=== PATIENT | male | born 1940 | race Caucasian/White ===

== ENCOUNTER 2017-05-16 20:25 | Inpatient (IN) | payer OTHER ==
[~2017-05-16] VITALS: Ht 180.3 cm; Wt 122.0 kg
[2017-05-16 20:32] VITALS: BP 136/100
[2017-05-16] MEDS ORDERED: SPIRONOLACTONE25 M1 PO (20:39)
[2017-05-16] MEDS ORDERED: NEURONTIN600 MG PO (20:39)
[2017-05-16] MEDS ORDERED: LIPITOR 20 MG T20 M1 PO (20:39)
[2017-05-16] MEDS ORDERED: NEURONTIN 300300 M1 PO (20:39)
[2017-05-16] MEDS ORDERED: PROTONIX40 M1 PO (20:39)
[2017-05-16] MEDS ORDERED: ELIQUIS5 MG PO (20:40)
[2017-05-16] MEDS ORDERED: LASIX 20 MG TAB20 MG PO (20:40)
[2017-05-16] MEDS ORDERED: SYNTHROID88 MCG PO (20:40)
[2017-05-16] MEDS ORDERED: LOPRESSOR100 M1 PO (20:41)
[2017-05-16] MEDS ORDERED: METROGEL60 GM TOP (20:41)
[2017-05-16] MEDS ORDERED: PROSCAR 5MG TABL5 MG PO (20:41)
[2017-05-16] MEDS ORDERED: TRAZODONE HCL100 MG PO (20:42)
[2017-05-16] MEDS ORDERED: FLOMAX0.4 MG PO (20:42)
[2017-05-16 20:46] LABS: ABSOLUTE BASOPHILS 0.1 thou/uL (0.0-0.2); ABSOLUTE EOSINOPHILS 0.2 thou/uL (0.0-0.7); ABSOLUTE LYMPHOCYTES 2.4 thou/uL (0.8-5.3); ABSOLUTE MONOCYTES 1.1 thou/uL (0.0-1.2); ABSOLUTE NEUTROPHILS 4.6 thou/uL (1.6-8.1); BASOPHILS 1.1 %; EOSINOPHILS 2.9 %; HEMATOCRIT 40.2 % (42.0-52.0); HEMOGLOBIN 13.7 gm/dL (14.0-18.0); LYMPHOCYTES 27.9 %; MCH 31.7 pg (26.0-34.0); MCHC 34.1 g/dL (28.0-37.0); MONOCYTES 13.4 %; MPV 9.9 fl. (7.2-11.1); NUCLEATED RBCS 0 /100WBC; PLATELET COUNT* 118 thou/uL (150-400); POLYS 54.7 %; RBC 4.32 mil/uL (4.50-6.00); RDW-CV 13.7 % (10.5-14.5); WBC 8.4 thou/uL (4.0-11.0)
--- NOTE | 2017-05-16 20:48 | NUR ---
DR GALLARDO IS AT BEDSIDE TALKING WITH PATIENT. PATIENT IS AWAKE, ALERT ORIENTED X 2 SKIN IS WARM AND DRY. PATIENT STATES HE HAS NOT HAD ANY CHEST PAIN AND DOES NOT HAVE ANY CHEST PAIN NOW. PATIENT DENIES ANY RESPIRATORY DISTRESS. PATIENT SITTING WITH HOB ELEVATED. NOTED EPISODES OF TACHYCARDIA ON MONITOR. DR GALLARDO STATES HE IS NOT GOING TO [facility] ANY TREATMENT FOR PATIENT UNLESS PATIENT BECOMES SYMPTOMATIC
[2017-05-16 20:58] LABS: ANION GAP 8 mmol/L (7-16); BUN 21 mg/dL (7-18); CALCIUM 8.6 mg/dL (8.5-10.1); CHLORIDE 105 mmol/L (98-107); CO2 29 mmol/L (21-32); CREATININE 0.9 mg/dL (0.6-1.3); GLUCOSE 124 mg/dL (70-99); POTASSIUM 4.2 mmol/L (3.5-5.1); SODIUM 142 mmol/L (136-145)
[2017-05-16 21:13] LABS: ALBUMIN 3.8 g/dL (3.4-5.0); ALKALINE PHOSPHATASE 67 U/L (46-116); CK-MB MASS 1.1 ng/mL (<0.5-3.6); LIPASE 119 U/L (73-393); MAGNESIUM 1.5 mg/dL (1.8-2.4); NT-PRO BRAIN NAT PEPTIDE 278 pg/mL (<300); SGOT 31 U/L (15-37); SGPT 36 U/L (30-65); TOTAL BILIRUBIN 0.5 mg/dL (<0.1-1.0); TOTAL PROTEIN 7.2 g/dL (6.4-8.2); TROPONIN-I LEVEL <0.06 ng/mL (<0.06)
[2017-05-16 21:19] LABS: APTT 27.9 Seconds (25.0-31.3); INR 1.1; PROTIME 11.1 Seconds (9.20-11.50)
[2017-05-16 21:51] VITALS: BP 101/66
[2017-05-16 22:10] VITALS: BP 120/85
[2017-05-16] MEDS ORDERED: ACETAMINOPHEN1 EACH PO (22:25)
[2017-05-17 04:00] VITALS: BP 115/78
--- NOTE | 2017-05-17 08:27 | NUR ---
PATIENT TO UNIT AT 2210, ADMISSION COMPLETED CHARTED. PATIENT ALERT/ORIENTED X4, RESTING IN BED. PLACED ON TELE, AFIB/PACED/WIDE COMPLEX TACHYCARDIA INTERMITTENTLY. DR. EDWARDS NOTIFIED OF RHYTHM, PRN ORDERS RECEIVED. WEARING OXYGEN 2L/NC, NO SOB NOTED, SATS 99%. WEARING HOME BIPAP AT HS. SL INTACT TO RIGHT AC, FLUSHES WELL. DENIES PAIN, CHEST PAIN OR NEEDS. DR. MCCLAIN NOTIFIED FOR HS MEDS, ORDERS RECEIVED. UP WITH SBA TO BATHROOM, STATES RECENTLY FALLING AT HOME. BED ALARM ON. FALL PRECAUTIONS IN PLACE. REFUSING SCD'S. NPO AFTER MIDNIGHT. CALL LIGHT WITHIN REACH, REPORT GIVEN TO ONCOMING NURSE.
[2017-05-17 08:35] VITALS: BP 99/66
--- NOTE | 2017-05-17 11:28 | EKG ---
[place] [address] ELECTROCARDIOGRAM REPORT Name: JACOBO VASQUEZ Room: [address] ADM IN .R.#: [id number] Admission: 05/16/17 Attend Phys: Cory Khan MD Discharge: Date of : 36 Report #: [id number] THIS REPORT FOR: //name// 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 : 1940 Requested By: Delon Waldrop Order Number: [id number] MD: Sammy Camarog Measurements Intervals [place] Rate: 81 P: LA: 164 QRS: -34 QRSD: 105 T: 63 QT: 380 QTc: 441 Interpretive Statements A-V dual-paced rhythm with some inhibition No further analysis attempted due to paced rhythm No previous ECG available for comparison Electronically Signed On 05-17-2017 11:27:53 POLE FRAMER by Sammy Camargo [email or web address] <ELECTRONICALLY SIGNED> By: Sammy Camargo MD, [facility] 05/17/17 1127 30 30 Sammy Camargo MD, [facility] /EPI
[2017-05-17 12:16] VITALS: BP 104/69
--- NOTE | 2017-05-17 14:21 | CON ---
[address] [address] CONSULTATION Name: JACOBO VASQUEZ Room: [address] IN .R.#: [id number] Admission: 05/16/17 Attend Phys: Cory Khan MD Discharge: Date of : 36 Report #: [id number] THIS REPORT FOR: //name// CC: [facility] PRIMARY AGRONOMY RESEARCH MANAGER: Dr. Palmer at [facility]. REASON FOR CONSULTATION: Abnormal cardiac rhythm. HISTORY OF PRESENT ILLNESS: The patient is a 76-year-old man who presented to the hospital with electrolyte dyscrasias and irregular heartbeat sensations. He has a known history of atrial fibrillation, has a permanent pacemaker implanted, [employer] device. Overnight on telemetry he is still having runs of atrial fibrillation, heart rates in the 120s, but also occasionally a wide complex tachycardia with slightly faster heart rates, which is occasionally paced. With these symptoms, he feels some mild fluttering sensations, but denies presyncope. He denies chest pain or pressure. Cardiac troponin levels are unremarkable. He has been compliant with his medications including anticoagulation. He has no neuro symptoms of slurred speech, numbness or visual changes. He has no underlying history of atherosclerotic heart disease or congestive heart failure. PAST MEDICAL HISTORY: 1. Significant for atrial arrhythmias, atrial fibrillation status post 05/10/2017 [employer] pacemaker implanted. He had a 2015 negative stress test, essential hypertension, sick sinus syndrome, MAKSIM, impaired fasting glucose. He has had a complicated spinal infection requiring a left-sided thoracotomy with apparent rib resection and residual chest wall defect. 2. Morbid obesity. PAST SURGICAL HISTORY: As above. Thoracic surgery, prior prostate surgery. HOME MEDICATIONS: Include Eliquis 5 mg p.o. b.i.d., Proscar, Nexium 40 mg daily, Lasix 20 mg every other day, Synthroid 50 mcg daily, metoprolol tartrate 150 mg p.o. b.i.d., Aldactone 25 mg daily, tamsulosin and atorvastatin 20 mg daily, Aldactone 25 mg daily. ALLERGIES: He has allergies to DOXYCYCLINE, FLUTICASONE, LEVAQUIN, LISINOPRIL and PENICILLIN. FAMILY HISTORY: Positive [place] [address] CONSULTATION Name: JACOBO VASQUEZ Room: [address]#: [id number] Admission: 05/16/17 Attend Phys: Cory Khan MD Discharge: Date of : 36 Report #: [id number] SOCIAL HISTORY: He is a nonsmoker. REVIEW OF SYSTEMS: GASTROINTESTINAL: No fevers or chills. CARDIOVASCULAR: Positive dizziness. Positive palpitations. No chest pain, orthopnea, no PND, no edema. SKIN: No rashes. GENERAL: No fevers or chills. PULMONARY: No wheezing or cough. ABDOMEN: Soft, nontender. EXTREMITIES: There is no peripheral edema. SKIN: No rashes. ALLERGIES: As above medical allergies. He also has a PENICILLIN allergy. No contrast allergy. PSYCHIATRIC: No depression or anxiety. HEMATOLOGIC: No anemia or bleeding disorder. GENITOURINARY: No dysuria or hematuria. EARS, NOSE, THROAT AND MOUTH: Positive decreased hearing. No bleeding from nose or dentures. PHYSICAL EXAMINATION: VITAL SIGNS: Blood pressure 115/78, pulse 71. Underlying rhythm is AV paced. GENERAL: A pleasant, morbidly obese, elderly male who is alert, oriented, no apparent distress. NECK: Supple. No jugular venous distention. CARDIOVASCULAR: Regular. I cannot hear a murmur. LUNGS: Clear to auscultation. CHEST WALL: He has the aforementioned defect on his left chest wall with protuberance which is nontender and nonerythematous. EXTREMITIES: There is no peripheral edema. LABORATORY DATA: Electrocardiogram demonstrates intermittent atrial fibrillation with also telemetry data with him in a sinus rhythm and then a wide complex tachycardia, which on telemetry is sometimes paced. It is regular at a rate of 150-160 beats per minute. Hemoglobin is 13.7, white blood cell count is 8.4, platelet count is 118,000. Sodium is 142, potassium 4.2, chloride is 105, CO2 is 29, BUN 21, creatinine 0.9, AST is 31, ALT is 36. Troponin I is 0.06. BNP is 278. IMPRESSION: 1. Paroxysmal atrial fibrillation. I think he may be tracking some from his permanent pacemaker. 2. Sick sinus syndrome. 3. Status post permanent pacemaker implantation. We will notify the device rep [address] [address] CONSULTATION Name: JACOBO VASQUEZ Room: [address] IN M.R.#: [id number] Admission: 05/16/17 Attend Phys: Cory Khan MD Discharge: Date of : 36 Report #: [id number] and have his device interrogated. 4. Oral anticoagulation adequate. He will continue with Eliquis. <ELECTRONICALLY SIGNED> By: Sammy Camargo MD, FACC 05/17/17 1421 0940 [id number] Camargo MD, FACC /nt
--- NOTE | 2017-05-17 14:32 | NUR ---
CM ASSESSMENT: Pt is A&O. Resides at home with his . Independent with ADLs, continues to assist around the house and drive. Pt uses a cane when out in the community. Pt wears a bipap at night, serviced through [facility]. Hx of , when he lived down by the [facility]. Hx of skilled at a facility in [place], [place]. Pt's goal is to return home once medically stable for dc. Following for dc needs.
--- NOTE | 2017-05-17 16:30 | NUR ---
PT AMBULATING WITH STEADY GAIT TO BR. ASSESSMENT COMPLETE. SR ON MONITOR. NO C/O SOA OR CP. PT STATES HE HAD DIARRHEA X 4 YESTERDAY, NONE TODAY. DISCHARGE ORDER COMPLETE. REVIEWED DC INSTRUCTIONS AND MED LIST WITH PT. ANSWERED QUESTIONS TO PT SATISFACTION. NEEDED ITEMS AND CALL LIGHT IN REACH.
[2017-05-17 17:42] VITALS: BP 104/69
[2017-05-17 17:55] VITALS: BP 104/69
== END 2017-05-17 18:30 | disposition home or self-care (01) | DRG 309 ==
LOC: M.ERS 20:25 → M.2W 20:51 → M.TBA-ER 20:51 → M.2W 21:25
PROVIDERS: Family Medicine; ADMIT Internal Medicine
DX: I48.0 Paroxysmal atrial fibrillation (principal); D68.69 Other thrombophilia; I50.32 Chronic diastolic (congestive) heart failure; E03.9 Hypothyroidism, unspecified; I10 Essential (primary) hypertension; E78.00 Pure hypercholesterolemia, unspecified; R20.0 Anesthesia of skin; E83.42 Hypomagnesemia; E66.01 Morbid (severe) obesity due to excess calories; I49.5 Sick sinus syndrome; Z68.37 Body mass index [BMI] 37.0-37.9, adult; Z88.1 Allergy status to other antibiotic agents; Z82.3 Family history of stroke; Z82.49 Family history of ischemic heart disease and other diseases of the circulatory system; Z88.0 Allergy status to penicillin; Z79.899 Other long term (current) drug therapy; Z95.0 Presence of cardiac pacemaker

== ENCOUNTER 2019-09-23 19:23 | Emergency (ER) | payer MEDICARE ==
[~2019-09-23] VITALS: Ht 180.3 cm; Wt 127.0 kg
[~2019-09-23 19:23] MED LIST: ACETAMINOPHEN1 EACH PO; ELIQUIS5 MG PO; FLOMAX0.4 MG PO; LASIX 20 MG TAB20 MG PO; LIPITOR 20 MG T20 M1 PO; LOPRESSOR100 M1 PO; METROGEL60 GM TOP; NEURONTIN 300300 M1 PO; NEURONTIN600 MG PO; PROSCAR 5MG TABL5 MG PO; PROTONIX40 M1 PO; SPIRONOLACTONE25 M1 PO; SYNTHROID88 MCG PO; TRAZODONE HCL100 MG PO
[2019-09-23] MEDS ORDERED: COZAAR 25 MG TA25 M2 PO (19:49)
[2019-09-23 19:58] LABS: ABSOLUTE BASOPHILS 0.1 thou/uL (0.0-0.2); ABSOLUTE EOSINOPHILS 0.2 thou/uL (0.0-0.7); ABSOLUTE LYMPHOCYTES 2.3 thou/uL (0.8-5.3); ABSOLUTE MONOCYTES 1.1 thou/uL (0.0-1.2); EOSINOPHILS 1.7 %; HEMATOCRIT 40.9 % (42.0-52.0); LYMPHOCYTES 21.1 %; MCH 32.1 pg (26.0-34.0); MCHC 34.2 g/dL (28.0-37.0); MCV 93.8 fL (80.0-100.0); MONOCYTES 10.2 %; MPV 9.7 fl. (7.2-11.1); NUCLEATED RBCS 0 /100WBC; PLATELET COUNT* 168 thou/uL (150-400); RBC 4.36 mil/uL (4.50-6.00); RDW-CV 13.4 % (10.5-14.5); WBC 10.7 thou/uL (4.0-11.0)
[2019-09-23 20:06] LABS: CALCIUM 8.7 mg/dL (8.5-10.1); CREATININE 1.2 mg/dL (0.6-1.3); POTASSIUM 3.7 mmol/L (3.5-5.1)
[2019-09-23 20:08] LABS: PROTIME 10.7 Seconds (9.20-11.50)
[2019-09-23 20:11] LABS: URINE BILIRUBIN NEGATIVE (Negative); URINE BLOOD 1+ (Negative); URINE CLARITY CLEAR; URINE COLOR YELLOW; URINE GLUCOSE-RANDOM NEGATIVE (Negative); URINE KETONES NEGATIVE (Negative); URINE LEUKOCYTES-REFLEX NEGATIVE (Negative); URINE NITRITE-REFLEX NEGATIVE (Negative); URINE PROTEIN NEGATIVE (Negative); URINE SPECIFIC GRAVITY <= 1.005 (1.005-1.030); URINE UROBILINOGEN 0.2 E.U./dl (0.2-1.0)
[2019-09-23 20:16] LABS: MAGNESIUM 1.2 mg/dL (1.8-2.4); TOTAL BILIRUBIN 0.4 mg/dL (<0.1-1.0); TOTAL PROTEIN 7.4 g/dL (6.4-8.2)
[2019-09-23 20:30] LABS: SQUAMOUS 0-3 Few /LPF (0-3); URINE WBC-REFLEX 0-5 Rare /HPF (0-5)
[2019-09-23 20:31] LABS: BACTERIA-REFLEX 1-9 Few /HPF (None Seen); CASTS None Seen /LPF (None Seen); CRYSTALS None Seen /LPF (None Seen); URINE RBC 0-2 Rare /HPF (0-2)
[2019-09-23 23:09] VITALS: BP 144/100
--- NOTE | 2019-09-24 09:10 | EKG ---
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 <ELECTRONICALLY SIGNED> By: Panchito Locke MD, [facility] 09/24/19908 40 40 Panchito Locke MD, [facility] /EPI
== END 2019-09-23 23:10 | disposition home or self-care (01) ==
LOC: M.ERS 19:23
PROVIDERS: Emergency Medicine
DX: E83.42 Hypomagnesemia (principal); I10 Essential (primary) hypertension; I48.91 Unspecified atrial fibrillation; E03.9 Hypothyroidism, unspecified; E78.00 Pure hypercholesterolemia, unspecified; Z88.0 Allergy status to penicillin

== ENCOUNTER 2020-09-13 08:27 | Observation (INO) | payer MEDICARE ==
[~2020-09-13] VITALS: Ht 180.3 cm; Wt 129.3 kg
--- NOTE | ~2020-09-13 | EKG ---
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
[~2020-09-13 08:27] MED LIST changes: +COZAAR 25 MG TA25 M2 PO; -PROTONIX40 M1 PO; +PROTONIX40 M2 PO
[2020-09-13 08:32] VITALS: BP 141/90
[2020-09-13] MEDS ORDERED: C-10001000 MG PO (08:34)
[2020-09-13] MEDS ORDERED: FLONASE 0.05%50 MCG NARES (08:35)
[2020-09-13] MEDS ORDERED: CEPHALEXIN500 MG PO (08:35)
[2020-09-13] MEDS ORDERED: LEVO-T75 MCG PO (08:36)
[2020-09-13] MEDS ORDERED: NYSTATIN15 G1 TOP (08:37)
[2020-09-13] MEDS ORDERED: TOPROL XL100 MG PO (08:37)
[2020-09-13] MEDS ORDERED: COZAAR 25 MG TA25 M1 PO (08:37)
[2020-09-13] MEDS ORDERED: PREDNISONE 10 M10 MG PO (08:38)
[2020-09-13] MEDS ORDERED: MIRAPEX0.25 MG PO (08:38)
[2020-09-13] MEDS ORDERED: VESICARE 5 MG TA5 M1 PO (08:39)
[2020-09-13] MEDS ORDERED: PREDNISONE 10 M10 MG (08:39)
[2020-09-13 08:55] LABS: ABSOLUTE BASOPHILS 0.1 thou/uL (0.0-0.2); ABSOLUTE EOSINOPHILS 0.2 thou/uL (0.0-0.7); ABSOLUTE LYMPHOCYTES 1.7 thou/uL (0.8-5.3); ABSOLUTE MONOCYTES 0.9 thou/uL (0.0-1.2); ABSOLUTE NEUTROPHILS 4.3 thou/uL (1.6-8.1); BASOPHILS 0.9 %; EOSINOPHILS 2.6 %; HEMATOCRIT 39.1 % (42.0-52.0); HEMOGLOBIN 13.4 gm/dL (14.0-18.0); MCH 31.9 pg (26.0-34.0); MCHC 34.4 g/dL (28.0-37.0); MCV 92.8 fL (80.0-100.0); MONOCYTES 12.8 %; MPV 9.1 fl. (7.2-11.1); NUCLEATED RBCS 0 /100WBC; PLATELET COUNT* 158 thou/uL (150-400); POLYS 59.7 %; RBC 4.21 mil/uL (4.50-6.00); RDW-CV 13.4 % (10.5-14.5); WBC 7.2 thou/uL (4.0-11.0)
[2020-09-13 09:07] LABS: CALCIUM 8.8 mg/dL (8.5-10.1)
[2020-09-13 09:08] LABS: APTT 25.1 Seconds (25.0-31.3); PROTIME 10.8 Seconds (9.20-11.50)
[2020-09-13 09:11] LABS: TOTAL BILIRUBIN 0.5 mg/dL (<0.1-1.0); TOTAL PROTEIN 7.2 g/dL (6.4-8.2)
[2020-09-13 12:05] VITALS: BP 97/76
[2020-09-13 12:17] VITALS: BP 148/96
[2020-09-13] MEDS ORDERED: PEPCID20 MG PO (13:52)
--- NOTE | 2020-09-13 14:00 | EKG ---
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: LAYNE : 1940 Requested By: Ayan Ha Order Number: [id number] MD: Andi Gillespie Measurements Intervals [place] Rate: 107 P: 0 TN: 34 QRS: -76 QRSD: 165 T: 88 QT: 433 QTc: 578 Interpretive Statements A-V dual-paced rhythm with some inhibition No further analysis attempted due to paced rhythm Compared to ECG 09/23/2019 19:41:42 Atrial fibrillation no longer present Left anterior fascicular block no longer present T-wave abnormality no longer present Electronically Signed On 09-13-2020 14:00:32 CDT by Andi Gillespie [email or web address] <ELECTRONICALLY SIGNED> By: Andi Gillespie MD, [facility] 09/13/20 1400 3 0834 Andi Gillespie MD, [facility] /EPI
[2020-09-13 16:24] VITALS: BP 148/76
--- NOTE | 2020-09-13 16:58 | 2DMMODE ---
[place] [address] 2 D/M-MODE ECHOCARDIOGRAM Name: JACOBO VASQUEZ Room: [address] Philip Feliciano#: [id number] Admission: 09/13/20 Attend Phys: Livan Nguyen Discharge: Date of : 36 Date of Service: 09/13/20 1657 Report #: [id number] THIS REPORT FOR: cc: Ga Schulte MD, Usman MD Holkins,Andi Lucero MD [facility] ~ APPROVED REPORT Study performed: 09/13/2020 15:55:01 EXAM: Comprehensive 2D, Doppler, and color-flow Echocardiogram Patient Location: In-Patient Room #: [facility] Status: routine BSA: 2.43 HR: 74 bpm Rhythm: NSR Other Information Study Quality: Good Indications Atrial Fibrillation 2D Dimensions IVSd: 13.63 (7-11mm) LVOT Diam: 21.84 (18-24mm) LVDd: 42.59 mm PWd: 12.25 (7-11mm) Ascending Ao: 38.36 (22-36mm) LVDs: 30.88 (25-40mm) Aortic Root: 36.35 mm Volumes Left Atrial Volume (Systole) LA ESV Index: 20.60 mL/m2 Aortic Valve AoV Peak Rodney.: 1.47 m/s AO Peak Gr.: 8.68 mmHg LVOT Max P.59 mmHg AO Mean Gr.: 5.30 mmHg LVOT Mean P.94 mmHg LVOT Max V: 1.07 m/s AO V2 VTI: 30.10 cm LVOT Mean V: 0.63 m/s AMEENA (VTI): 2.77 cm2 LVOT V1 VTI: 22.29 [place] [address] 2 D/M-MODE ECHOCARDIOGRAM Name: JACOBO VASQUEZ Room: [address]R.#: [id number] Admission: 09/13/20 Attend Phys: Livan Nguyen Discharge: Date of : 36 Date of Service: 09/13/20 1657 Report #: [id number] Mitral Valve E/A Ratio: 0.59 MV Decel. Time: 410.24 ms MV E Max Rodney.: 0.45 m/s MV PHT: 118.97 ms MVA (PHT): 1.85 cm2 TDI E/Lateral E': 9.00 E/Medial E': 6.43 Medial E' Rodney.: 0.07 m/s Lateral E' Rodney.: 0.05 m/s Pulmonary Valve PV Peak Rodney.: 0.89 m/s PV Peak Gr.: 3.18 mmHg Tricuspid Valve RAP Estimate: 5.00 mmHg TR Peak Gr.: 18.61 mmHg RVSP: 23.00 mmHg PA Pressure: 23.00 mmHg Left Ventricle The left ventricle is normal size. There is normal LV segmental wall motion. Mild concentric left ventricular hypertrophy. Left ventricular systolic function is normal. The left ventricular ejection fraction is within the normal range. LVEF is 60-65%. Grade I - abnormal relaxation pattern. Right Ventricle The right ventricle is normal size. The right ventricular systolic function is normal. Pacemaker lead is present in the right ventricle. Atria The left atrium size is normal. The right atrium size is normal. Aortic Valve Mild aortic valve sclerosis. Mild aortic regurgitation. There is no aortic valvular stenosis. Mitral Valve The mitral valve is normal in structure. Mild mitral regurgitation. No evidence of mitral valve stenosis. Tricuspid Valve The tricuspid valve is normal in structure. Mild tricuspid regurgitation. [place] [address] 2 D/M-MODE ECHOCARDIOGRAM Name: JACOBO VASQUEZ Room: [address] M..#: [id number] Admission: 09/13/20 Attend Phys: Livan Nguyen Discharge: Date of : 36 Date of Service: 09/13/20 1657 Report #: [id number] Pulmonic Valve The pulmonary valve is normal in structure. There is no pulmonic valvular regurgitation. Great Vessels The aortic root is normal in size. IVC is normal in size and collapses >50% with inspiration. Pericardium There is no pericardial effusion. <Conclusion> The left ventricle is normal size. Mild concentric left ventricular hypertrophy. Left ventricular systolic function is normal. The left ventricular ejection fraction is within the normal range. LVEF is 60-65%. Grade I - abnormal relaxation pattern. The right ventricle is normal size. The left atrium size is normal. Mild aortic valve sclerosis. Mild aortic regurgitation. There is no aortic valvular stenosis. The mitral valve is normal in structure. Mild mitral regurgitation. The tricuspid valve is normal in structure. Mild tricuspid regurgitation. No pulmonary hypertension. IVC is normal in size and collapses >50% with inspiration. There is no pericardial effusion. There is normal LV segmental wall motion. Pacemaker lead is present in the right ventricle. <ELECTRONICALLY SIGNED> By: Andi Gillespie MD, FACC 09/13/20 1657 56 56 Andi Gillespie MD, FACC /INF
--- NOTE | 2020-09-13 19:49 | NUR ---
PT ADMITTED TO ROOM 213 VIA CART FROM ED AT APPROX 1217, REPORT RECEIVED FROM REBA MICHAEL. PT AOX4, UP SBA PLUS WALKER, CARDIOLOGY ON BOARD AND PACEMAKER COMPANY CALLED AND ASKED TO RUN A REPORT ON PT'S PACEMAKER, THEY STATE THEY WILL CHECK IT EITHER LATER TONIGHT OR EARLY TOMORROW ([employer]). PT GOT AMIODARONE IV BOLUS AND STARTED TO FEEL "HOT AND NOT GOOD", CARDIOLOGY CALLED AND DR GUNN STATES IT'S OKAY, VSS AT THIS TIME AND PT STARTING TO FEEL A LITTLE BETTER. ADMISSION ASSESSMENT AND HX COMPLETED CHARTED, HOME MEDS RECONCILED, PT ORIENTED TO ROOM AND CALL LIGHT, HOME BIPAP BROUGHT IN BY .
[2020-09-13 20:00] VITALS: BP 134/85
[2020-09-13 23:50] VITALS: BP 92/64
[2020-09-14 04:30] VITALS: BP 148/92
[2020-09-14 05:19] LABS: ABSOLUTE BASOPHILS 0.1 thou/uL (0.0-0.2); ABSOLUTE EOSINOPHILS 0.1 thou/uL (0.0-0.7); ABSOLUTE LYMPHOCYTES 1.8 thou/uL (0.8-5.3); ABSOLUTE MONOCYTES 1.1 thou/uL (0.0-1.2); ABSOLUTE NEUTROPHILS 6.7 thou/uL (1.6-8.1); BASOPHILS 1.4 %; EOSINOPHILS 1.5 %; LYMPHOCYTES 18.6 %; MCH 32.5 pg (26.0-34.0); MCHC 35.1 g/dL (28.0-37.0); MCV 92.4 fL (80.0-100.0); MONOCYTES 10.9 %; MPV 8.7 fl. (7.2-11.1); NUCLEATED RBCS 0 /100WBC; PLATELET COUNT* 181 thou/uL (150-400); POLYS 67.6 %; RDW-CV 13.4 % (10.5-14.5); WBC 9.9 thou/uL (4.0-11.0)
[2020-09-14 05:37] LABS: ALBUMIN 3.8 g/dL (3.4-5.0); CALCIUM 9.2 mg/dL (8.5-10.1); CREATININE 1.1 mg/dL (0.6-1.3); POTASSIUM 3.8 mmol/L (3.5-5.1); TOTAL BILIRUBIN 0.4 mg/dL (<0.1-1.0); TOTAL PROTEIN 6.9 g/dL (6.4-8.2)
--- NOTE | 2020-09-14 06:52 | NUR ---
ASSUMED PT CARE AT 1930. ASSESSMENT COMPLETED CHARTED. ABLE TO MAKE NEEDS KNOWN. UP WTIH SBA WITH CANE. NO C/O PAIN OR DISCOMFORT BUT HAD SOA WITH EXERTION AND HEARTRATE WOULD JUMP UP RANDOMLY TO 12O THEN BACK DOWN TO 70. PT RESTING IN BED SOME OF THE NIGHT. UP TO USE RESTROOM MULTIPLE TIMES DURING THE NIGHT AND USES HOME BIPAP. CALL LIGHT WITHIN REACH. WILL CONTINUE TO MONITOR.
[2020-09-14 08:00] VITALS: BP 112/76
[2020-09-14] MEDS ORDERED: LOPRESSOR50 MG PO (11:11)
[2020-09-14 12:43] VITALS: BP 101/63
[2020-09-14] MEDS ORDERED: TOPROL XL100 MG PO (12:59)
[2020-09-14] MEDS ORDERED: CARDIZEM CD120 MG PO (12:59)
[2020-09-14 13:37] VITALS: BP 101/63
--- NOTE | 2020-09-14 14:15 | NUR ---
RECEIVED REPORT AROUND 0715. ASSUMED CARE. VS AND ASSESSMENT CHARTED. IV INTACT RIGHT AC. HEART MONITOR ATTACHED AT AVPACED. PACEMAKER INTEGROGATED THIS AM. PAPERWORK IN CHART. DISCHARGE OK WITH CARDIOLOGY. RECEIVED DISCHARGE ORDERS. IV TAKEN OUT. HEART MONITOR OFF. THE CORRECT METOPROLOL CALLED TO PHARMACY AND WROTE ON D/C PAPERWORK. PT COMMUNICATED UNDERSTANDING. PT LEFT UNIT VIA WHEEL CHAIR AT 1410 WITH NURSING STAFF AND ALL BELONGINGS.
== END 2020-09-14 14:15 | disposition home or self-care (01) ==
LOC: M.ERS 08:27 → M.2W 09:30 → M.TBA-ER 09:30 → M.2W 12:05
PROVIDERS: Emergency Medicine; ADMIT Internal Medicine; ATTEND Internal Medicine
DX: I48.20 Chronic atrial fibrillation, unspecified (principal); Z20.822 Contact with and (suspected) exposure to COVID-19; E83.42 Hypomagnesemia; I10 Essential (primary) hypertension; E03.9 Hypothyroidism, unspecified; E78.5 Hyperlipidemia, unspecified; Z87.891 Personal history of nicotine dependence; Z79.899 Other long term (current) drug therapy

== ENCOUNTER 2020-10-15 13:34 | Emergency (ER) | payer MEDICARE ==
[~2020-10-15] VITALS: Ht 180.3 cm; Wt 104.3 kg
[~2020-10-15 13:34] MED LIST changes: +C-10001000 MG PO; +CARDIZEM CD120 MG PO; +CEPHALEXIN500 MG PO; +COZAAR 25 MG TA25 M1 PO; +FLONASE 0.05%50 MCG NARES; +LEVO-T75 MCG PO; +LOPRESSOR50 MG PO; +MIRAPEX0.25 MG PO; +NYSTATIN15 G1 TOP; +PEPCID20 MG PO; +PREDNISONE 10 M10 MG; +PREDNISONE 10 M10 MG PO; +TOPROL XL100 MG PO; +VESICARE 5 MG TA5 M1 PO
[2020-10-15] MEDS ORDERED: ZPAK PO (14:23)
[2020-10-15] MEDS ORDERED: PREDNISONE 20 M20 M1 PO (14:23)
[2020-10-15 14:25] VITALS: BP 145/71
== END 2020-10-15 14:25 | disposition home or self-care (01) ==
LOC: M.ERS 13:34
DX: J40 Bronchitis, not specified as acute or chronic (principal); Z20.822 Contact with and (suspected) exposure to COVID-19; I48.91 Unspecified atrial fibrillation; I10 Essential (primary) hypertension; E78.00 Pure hypercholesterolemia, unspecified; E03.9 Hypothyroidism, unspecified; Z88.0 Allergy status to penicillin

== ENCOUNTER 2021-05-12 07:41 | Emergency (ER) | payer MEDICARE ==
[~2021-05-12] VITALS: Ht 180.3 cm; Wt 124.7 kg
[~2021-05-12 07:41] MED LIST changes: +PREDNISONE 20 M20 M1 PO; +ZPAK PO
[2021-05-12 09:06] LABS: ABSOLUTE BASOPHILS 0.1 thou/uL (0.0-0.2); ABSOLUTE EOSINOPHILS 0.2 thou/uL (0.0-0.7); ABSOLUTE LYMPHOCYTES 1.2 thou/uL (0.8-5.3); ABSOLUTE MONOCYTES 0.9 thou/uL (0.0-1.2); ABSOLUTE NEUTROPHILS 5.3 thou/uL (1.6-8.1); BASOPHILS 0.9 %; EOSINOPHILS 2.4 %; HEMATOCRIT 39.9 % (42.0-52.0); HEMOGLOBIN 13.6 gm/dL (14.0-18.0); LYMPHOCYTES 16.1 %; MCH 32.1 pg (26.0-34.0); MCHC 34.1 g/dL (28.0-37.0); MCV 93.9 fL (80.0-100.0); MONOCYTES 11.2 %; MPV 8.8 fl. (7.2-11.1); NUCLEATED RBCS 0 /100WBC; PLATELET COUNT* 176 thou/uL (150-400); POLYS 69.4 %; RBC 4.25 mil/uL (4.50-6.00); RDW-CV 13.4 % (10.5-14.5); WBC 7.6 thou/uL (4.0-11.0)
[2021-05-12 09:15] LABS: CALCIUM 8.5 mg/dL (8.5-10.1); POTASSIUM 4.1 mmol/L (3.5-5.1)
[2021-05-12 09:16] LABS: APTT 27.5 Seconds (25.0-31.3); PROTIME 10.6 Seconds (9.20-11.50)
--- NOTE | 2021-05-12 09:19 | EKG ---
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: : 1940 Requested By: Fox Michaels Order Number: [id number] MD: Lamin Werner Measurements Intervals [place] Rate: 70 P: IN: 234 QRS: -38 QRSD: 99 T: -87 QT: 406 QTc: 439 Interpretive Statements Atrial-paced complexes Prolonged IN interval Left axis deviation Delayed R wave progression Low voltage in the precordial leads Compared to ECG 09/13/2020 08:34:00 First degree AV block now present Left-axis deviation now present Ventricular-paced complex(es) or rhythm no longer present Electronically Signed On 05-12-2021 9:19:31 ELEMENT[employer] by Lamin Werner [email or web address] <ELECTRONICALLY SIGNED> By: Lamin Werner MD, FACC 05/12/21918 1 1 Lamin Werner MD, [facility] /EPI
[2021-05-12 09:29] LABS: CK-MB MASS 1.3 ng/mL (<0.5-3.6); MAGNESIUM 1.8 mg/dL (1.8-2.4); TOTAL BILIRUBIN 0.5 mg/dL (<0.1-1.0); TOTAL PROTEIN 7.2 g/dL (6.4-8.2)
[2021-05-12 10:56] VITALS: BP 145/94
== END 2021-05-12 10:57 | disposition home or self-care (01) ==
LOC: M.ERS 07:41
PROVIDERS: Emergency Medicine
DX: I49.9 Cardiac arrhythmia, unspecified (principal); F41.9 Anxiety disorder, unspecified; J02.9 Acute pharyngitis, unspecified; I48.91 Unspecified atrial fibrillation; Q76.7 Congenital malformation of sternum; E03.9 Hypothyroidism, unspecified; I10 Essential (primary) hypertension; E78.00 Pure hypercholesterolemia, unspecified; Z98.890 Other specified postprocedural states; Z79.899 Other long term (current) drug therapy; Z79.891 Long term (current) use of opiate analgesic; Z79.1 Long term (current) use of non-steroidal anti-inflammatories (NSAID); Z88.0 Allergy status to penicillin